=== PATIENT | female | born 2000 | race Caucasian/White ===

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

== ENCOUNTER 2019-08-06 19:08 | Observation (INO) ==
[2019-08-06] MEDS ORDERED: Ondansetron 4 MG/2 ML VIAL IVP PRN (19:30)
[2019-08-06] MEDS ORDERED: Ferumoxytol 510 MG in 0.9 % Sodium Chloride 100 ML IVPB ONE (19:30)
[2019-08-06] MEDS ORDERED: Ringers Solution, Lactated 1,000 ML IVC ONE ×2 (19:30→21:10)
[2019-08-06] MEDS ORDERED: Ringers Solution, Lactated 1,000 ML ONE (19:32)
[2019-08-06 20:19] LABS: % Iron Saturation 2 % (15-50); Iron 16 mcg/dL (50-170); Transferrin 466 mg/dL (203-362)
== END 2019-08-06 22:58 | disposition home or self-care (01) ==
LOC: 1NENULAB
PROVIDERS: ADMIT Registered Nurse; ATTEND Registered Nurse

== ENCOUNTER 2019-08-12 13:50 | Observation (INO) ==
[2019-08-12] MEDS ORDERED: Ferumoxytol 510 MG in 0.9 % Sodium Chloride 100 ML IVPB ONE (16:24)
[2019-08-12 19:12] VITALS: BP 104/62
== END 2019-08-12 19:20 | disposition home or self-care (01) ==
LOC: 1NENULAB → 1NENUOBS 14:45 → 1NENULAB 16:24
PROVIDERS: ADMIT Registered Nurse; ATTEND Registered Nurse

== ENCOUNTER 2019-08-19 14:41 | Observation (INO) ==
[2019-08-19 13:17] LABS: Basophils % 0.4 %; Mean Platelet Volume 10.1 fL (9.4-12.4)
[2019-08-19 13:18] LABS: Eosinophils # 0.1 K/mcL (0.0-0.6); Eosinophils % 1.3 %; Hematocrit 30.9 % (35.3-44.9); Hemoglobin 8.7 g/dL (11.5-15.4); Immature Granulocytes % 0.3 % (0-4); Lymphocytes # 1.9 K/mcL (0.6-4.6); Lymphocytes % 20.4 %; Mean Corpuscular HGB Conc 28.2 g/dL (31.6-35.5); Mean Corpuscular Hemoglobin 21.5 pg (28.0-33.3); Monocytes # 0.7 K/mcL (0.0-1.3); Monocytes % 7.9 %; Neutrophils # 6.4 K/mcL (1.6-8.9); Platelet Count 226 K/mcL (140-400); Red Blood Count 4.05 M/mcL (3.82-4.97); Red Cell Distribution Width 28.2 % (11.5-14.5); Segmented Neutrophils % 69.7 %; White Blood Count 9.2 K/mcL (4.3-11.1)
[2019-08-19 13:25] LABS: Mean Corpuscular Volume 76.3 fL (83.0-100.0)
[2019-08-19 14:01] LABS: Anisocytosis 2+ (Not Present); Hypochromasia Present (Not Present); Platelet Estimate Normal (Normal)
[~2019-08-19 14:41] MED LIST: 0.9 % Sodium Chloride 1,000 ML IV ONE
[2019-08-19 20:34] VITALS: BP 116/73
== END 2019-08-19 21:45 | disposition home or self-care (01) ==
LOC: 1NENULAB → 1NENUOBS 14:41
PROVIDERS: ADMIT Advanced Practice Midwife; ATTEND Advanced Practice Midwife

== ENCOUNTER 2019-08-31 05:55 | Inpatient (IN) ==
[2019-08-31] MEDS ORDERED: Naloxone 0.4 MG/ML INJ IVP PRN (06:08)
[2019-08-31] MEDS ORDERED: Metoclopramide 10 MG/2 ML VIAL IVP PRN (06:08)
[2019-08-31] MEDS ORDERED: Ondansetron 4 MG/2 ML VIAL IVP PRN (06:08)
[2019-08-31] MEDS ORDERED: Famotidine 20 MG/2 ML VIAL IVP PRN (06:08)
[2019-08-31] MEDS ORDERED: Lidocaine 1% 20 ML MDV INFILT PRN (06:08)
[2019-08-31] MEDS ORDERED: Oxytocin 20 units/ LR 1000 mL 20 UNIT/1,000 ML BAG IVC SCH ×2 (06:45→14:30)
[2019-08-31 06:55] LABS: Basophils # 0.1 K/mcL (0.0-0.2); Basophils % 0.9 %; Eosinophils # 0.1 K/mcL (0.0-0.6); Eosinophils % 1.1 %; Hematocrit 34.9 % (35.3-44.9); Hemoglobin 10.6 g/dL (11.5-15.4); Immature Granulocytes % 0.3 % (0-4); Lymphocytes # 1.9 K/mcL (0.6-4.6); Lymphocytes % 25.9 %; Mean Corpuscular HGB Conc 30.4 g/dL (31.6-35.5); Mean Corpuscular Hemoglobin 23.9 pg (28.0-33.3); Mean Corpuscular Volume 78.8 fL (83.0-100.0); Mean Platelet Volume 10.1 fL (9.4-12.4); Monocytes # 0.4 K/mcL (0.0-1.3); Monocytes % 5.1 %; Platelet Count 147 K/mcL (140-400); Red Blood Count 4.43 M/mcL (3.82-4.97); Segmented Neutrophils % 66.7 %; White Blood Count 7.4 K/mcL (4.3-11.1)
[2019-08-31] MEDS ORDERED: miSOPROStoL 25 MCG TABLET PO ONE (07:00)
[2019-08-31] MEDS: Ringers Solution, Lactated 1,000 ML IVC SCH ×2 (07:02→09:18)
[2019-08-31 07:16] LABS: Anisocytosis 1+ (Not Present); Macrocytosis Present (Not Present); Neutrophils # 4.9 K/mcL (1.6-8.9); Platelet Estimate Slight Decrease (Normal); Rouleaux Present (Not Present)
[2019-08-31] MEDS ORDERED: EPHEDrine 50 MG/ML VIAL IVP PRN (07:45)
[2019-08-31] MEDS ORDERED: Epidural Premix (fent/bupiv) 110 ML EP SCH (07:45)
[2019-08-31] MEDS ORDERED: *HR* FentaNYL (PF) 100 MCG/2 ML VIAL ONE (07:59)
[2019-08-31] MEDS ORDERED: Ropivacaine/PF 0.2% 20 ML VIAL ONE (08:00)
[2019-08-31] MEDS ORDERED: Methylergonovine 0.2 MG/ML AMPUL IM ONE (08:01)
[2019-08-31 08:39] LABS: Amphetamine Screen,Urine Negative ng/mL (Cutoff=1000); Barbiturate Screen,Urine Negative ng/mL (Cutoff=200); Benzodiazepines Screen,Urine Negative ng/mL (Cutoff=200); Cannabinoid Screen,Urine Negative ng/mL (Cutoff = 50); Cocaine Screen,Urine Negative ng/mL (Cutoff= 300); Opiate Screen,Urine Negative ng/mL (Cutoff=300); Phencyclidine Screen,Urine Negative ng/mL (Cutoff=25)
[2019-08-31] MEDS ORDERED: Measles/Mumps/Rubella Vacc 0.5 ML VIAL SQ PRN (14:23)
[2019-08-31] MEDS ORDERED: Lanolin 7 G OINT...G. TP PRN (14:23)
[2019-08-31] MEDS ORDERED: Benzocaine/Menthol 56 GM AEROSOL SPRAY TP PRN (14:23)
[2019-08-31] MEDS: Acetaminophen 325 MG TABLET PO PRN (17:12)
[2019-08-31] MEDS: Ibuprofen 600 MG TABLET PO PRN (20:04)
[2019-09-01] MEDS: Ibuprofen 600 MG TABLET PO PRN ×2 (03:26→14:00)
[2019-09-01 06:15] LABS: Basophils # 0.1 K/mcL (0.0-0.2); Basophils % 0.6 %; Eosinophils # 0.2 K/mcL (0.0-0.6); Eosinophils % 1.6 %; Hematocrit 38.9 % (35.3-44.9); Hemoglobin 11.3 g/dL (11.5-15.4); Immature Granulocytes % 0.4 % (0-4); Lymphocytes % 18.7 %; Mean Corpuscular Hemoglobin 23.2 pg (28.0-33.3); Mean Corpuscular Volume 79.9 fL (83.0-100.0); Mean Platelet Volume 10.1 fL (9.4-12.4); Monocytes # 0.8 K/mcL (0.0-1.3); Neutrophils # 7.4 K/mcL (1.6-8.9); Platelet Count 161 K/mcL (140-400); Red Blood Count 4.87 M/mcL (3.82-4.97); Segmented Neutrophils % 70.7 %; White Blood Count 10.4 K/mcL (4.3-11.1)
[2019-09-01 06:17] LABS: Lymphocytes # 1.9 K/mcL (0.6-4.6)
[2019-09-01 06:53] LABS: Anisocytosis 1+ (Not Present)
[2019-09-01 06:54] LABS: Macrocytosis Present (Not Present); Platelet Estimate Slight Decrease (Normal); Poikilocytosis 1+ (Not Present)
[2019-09-01] MEDS: Acetaminophen 325 MG TABLET PO PRN (08:34)
[2019-09-01] MEDS ORDERED: Prenatal Vit/FA 1 EACH TABLET PO SCH (09:00)
[2019-09-01 13:40] VITALS: BP 110/72
[2019-09-01] MEDS ORDERED: Lidocaine/EPI 1:100k 1% 20 ML VIAL INFILT ONE (15:20)
[2019-09-01] MEDS ORDERED: Etonogestrel 68 MG IMPLANT IL ONE (15:20)
[2019-09-01] MEDS ORDERED: FLU Vac QV 19-20 (6Month+)/PF 0.5 ML SYRINGE IM ONE (16:05)
[2019-09-01 16:52] LABS: Hematocrit 34.9 % (35.3-44.9); Hemoglobin 10.6 g/dL (11.5-15.4); Immature Granulocytes % 0.2 % (0-4); Lymphocytes % 18.9 %; Mean Corpuscular HGB Conc 30.4 g/dL (31.6-35.5); Mean Corpuscular Hemoglobin 24.7 pg (28.0-33.3); Mean Corpuscular Volume 81.2 fL (83.0-100.0); Mean Platelet Volume 10.3 fL (9.4-12.4); Platelet Count 158 K/mcL (140-400); Segmented Neutrophils % 71.8 %; White Blood Count 8.1 K/mcL (4.3-11.1)
[2019-09-01 16:53] LABS: Basophils # 0.1 K/mcL (0.0-0.2); Basophils % 0.6 %; Eosinophils # 0.2 K/mcL (0.0-0.6); Lymphocytes # 1.5 K/mcL (0.6-4.6); Monocytes # 0.5 K/mcL (0.0-1.3); Monocytes % 6.5 %; Neutrophils # 5.8 K/mcL (1.6-8.9)
[2019-09-01 17:26] LABS: Anisocytosis 3+ (Not Present)
[2019-09-01 17:27] LABS: Hypochromasia Present (Not Present); Platelet Estimate Normal (Normal)
== END 2019-09-01 21:45 | disposition home or self-care (01) | DRG 560 ==
LOC: 1NENULAB 05:55 → 1NENUOBS 16:24
PROVIDERS: ADMIT Advanced Practice Midwife; ATTEND Advanced Practice Midwife